=== PATIENT | male | born 1975 | race Caucasian/White ===

== ENCOUNTER 2021-11-19 18:49 | Emergency (ER) | payer SELFPAY ==
[2021-11-19 19:07] VITALS: BP 139/87; PULSE 70; RESP 18; TEMP 36.9; O2SAT 96; BMI 29.2
--- NOTE | 2021-11-19 21:18 | ED.ALLEREA ---
HPI - Allergic Reaction General Chief complaint: Allergic Reaction Stated complaint: allergic reaction?/skin irritation Time Seen by Provider: 11/19/21 21:08 Source: patient Mode of arrival: ambulatory Limitations: language barrier (Patient speaks Cypriot, Cypriot interpreter for the deaf was used) History of Present Illness HPI narrative: 46-year-old male who presents emergency department for evaluation of an allergic reaction to his face x3 days The patient works in construction. He was applying a ammonia product to wall in a confined space (Red Guard). He states that there was a lot of fumes that came in contact with his face. He states that 2-3 hours after being exposed these fumes his face became red. He states that he also has a burning sensation to the skin of his face and his face is very itchy. He denied difficulty swallowing, shortness of breath, weakness, fever, chills. He states he has had a similar reaction in the past when he has used ammonia products and when he has used cleaning products that contain alcohol. He states that he took Benadryl with no relief his symptoms. complaint: allergic reaction Onset (ago): day(s) (3) Exposure: cleaning product exposure (Red Gaurd, ammonia containing sealant) Symptoms: rash and itching Severity: severe Treatment prior to arrival: none Previous Allergic Reaction History: other (Similar reaction to ammonia and alcohol containing cleaning products) Related Data Previous Rx's Medication Instructions Recorded prednisone 20 mg tablet 60 mg PO DAILY 10 Days #30 tab 11/19/21 Allergies Allergy/AdvReac Type Severity Reaction Status Date / Time No Known Allergies Allergy Verified 11/19/21 19:07 Review of Systems Review of Systems: Yes all other systems are reviewed and are negative [facility] Past Medical History [facility] Narrative: Past medical history: None. Past surgical history: None. Social history the patient worse in construction. He denies tobacco use. He states he occasionally drinks alcohol. Denies drug use. Social History Social History Advance Directives: No Physical Exam ED Vital Signs: Vital Signs - 24 hr 11/19/21 19:07 Temperature 98.5 F Pulse Rate 70 Respiratory Rate 18 Blood Pressure 139/87 Pulse Oximetry 96 BMI result Body Mass Index 29.2 Const Other: Very pleasant and cooperative male patient, he does not appear to be in distress, answers all questions appropriately. HENMT Other: The patient has redness over his entire face, the skin of his face is indurated, it is not warm to the touch, the erythema does not satnam with pressure. Ears: external ears normal General nose exam: Normal external nose present Face and sinus: Yes normal facial exam Mouth: Normal oral and palatal mucosa present Throat: Yes posterior oropharynx normal Eyes General: appearance normal, both eyes and all related structures Pupils: Equal, round and reactive pupils present Neck Neck: Yes normal visual inspection, Yes no lymphadenopathy, Yes trachea midline and Yes supple Chest Chest palpation & inspection: normal inspection of the chest and normal palpation of entire chest wall Resp Effort & Inspection: normal respiratory effort and able to speak in complete sentences Auscultation: clear to auscultation bilaterally Cardio Rate: regular rate Rhythm: regular rhythm Heart sounds: S1 normal heart sound present, S2 normal heart sound present and no murmurs GI Inspection: Yes normal to inspection Palpation (GI): Soft to palpation, nontender and no guarding Auscultation: normal bowel sounds General: Yes no CVA tenderness Back/Spine/Pelvis Back: no CVA tenderness Skin Other: See head exam, the patient's face is red and indurated this is consistent with an allergic reaction. Neuro Cranial nerves: Yes CN's II-XII intact bilaterally and Yes Equal, round and reactive pupils present Cognition (Neuro): normal cognition Motor exam (neuro): 5/5 motor strength present throughout Extrem General: Yes normal to inspection Psych Appearance: grossly normal Speech and movement: Normal speech and movement present Affect: normal affect Attitude: cooperative Thought process: Normal thought process present Thought content: Normal thought content present Course Course Course Narrative: 46-year-old male who presents emergency department for evaluation of redness erythema burning in itchiness of his face. The symptoms started several hours after you applied ammonia product to a wall. This occurred 3 days prior. Patient has had similar reactions the past when he has used other ammonia products and chemical cleaning parts including alcohol. Patient has no shortness of breath or difficulty breathing in no other associated symptoms. His examination is consistent with an allergic reaction to the skin of his face. Patient was started on prednisone 60 mg once a day. I told him that he may need to take this for 7-10 days. Was also advised to take Benadryl 50 mg 4 times a day. He was given a note not return to work. Was given verbal and printed instructions and discharged home. Discharge Plan Discharge Clinical Impression: Allergic reaction Qualifiers: Encounter type: initial encounter Qualified Code(s): T78.40XA - Allergy, unspecified, initial encounter Patient Disposition: Home, Self-Care Instructions: General Allergic Reaction (ED) Additional Instructions: Your exam is consistent with an allergic reaction to your face caused by the fumes from the ammonia product that you use. You should avoid using ammonia products or products with alcohol and them in the future since this can cause a more severe allergic reaction each time your exposed to these products. Take prednisone 20 mg pills, 3 pills once a day for 7-10 days. Take Benadryl (diphenhydramine) 25 mg pills, 2 pills 4 times a day for the next 2-3 days to help reduce the swelling and itchiness in the area of your rash. This medication will make you sleepy. Do not drive or work while taking this medication. Follow-up with your doctor in 2 days. Please return to the emergency department if your symptoms get worse or if you develop any symptoms that are concerning to you. Please see work note Prescriptions: New prednisone 20 mg tablet 60 mg PO DAILY 10 Days Qty: 30 0RF
[2021-11-19] MEDS: diphenhydrAMINE HCL 25 MG TABLET 50 MG PO (21:28)
[2021-11-19] MEDS: predniSONE 20 MG TABLET 60 MG PO (21:28)
[2021-11-19 21:36] VITALS: BP 147/96; PULSE 61; RESP 18; TEMP 36.6; O2SAT 96
== END 2021-11-19 21:54 | disposition home or self-care (01) ==
LOC: HO.ED 21:29
PROVIDERS: Emergency Provider Emergency Medicine Emergency Medical Services
DX: T78.49XA Other allergy, initial encounter (principal); L29.9 Pruritus, unspecified; Y93.H3 Activity, building and construction
CPT/HCPCS: 99283; Q0163